=== PATIENT | female | born 1985 | race Caucasian/White ===

== ENCOUNTER 2017-10-27 21:37 | Emergency (ER) ==
[2017-10-27 21:46] VITALS: BP 117/77; TEMP 99.2; BMI 20.2
--- NOTE | 2017-10-27 21:58 | ED.PDOC ---
General ED Provider: Dr. UTE WARE-ER Chief Complaint: Non-specific Complaint Stated Complaint: angela got this cyst on my labia Time Seen by Physician: 21:56 Mode of Arrival: Walk-In Information Source: Patient Exam Limitations: No limitations Nursing and Triage Documentation Reviewed and Agree: Yes Reviewed sepsis parameters & appropriate labs ordered?: Yes System Inflammatory Response Syndrome: Not Applicable Sepsis Protocol: For patient's 13 years and over: Temp is 96.8 and below OR 101 and greater Pulse >90 BPM Resp >20/minute Acutely Altered Mental Status Are patient's symptoms suggestive of a new infection, such as: -Pneumonia -Skin, Soft Tissue -Endocarditis -UTI -Bone, Joint Infection -Implantable Device -Acute Abdominal Infection -Wound Infection -Meningitis -Blood Stream Catheter Infection -Unknown Skin Complaint Exam - Skin/Soft Tissue Complaint/Exam Onset/Duration: 5 days Symptoms Are: Still present Timing: Constant Initial Severity: Mild Current Severity: Mild Location: left labia Character: Reports: Swelling, Raised Aggravating: Reports: None Alleviating: Reports: None Associated Signs and Symptoms: Reports: Tenderness Related History: Reports: Similar episode Related Surgical History: Reports: None Recent Exposure to Others w/Similar Symptoms: Yes Skin Findings: Present: Fluctuant mass Joint Tenderness Present: No Differential Diagnoses: Abscess, Cellulitis Review of Systems - Review Of Systems Constitutional: Reports: No symptoms Eyes: Reports: No symptoms Ears, Nose, Mouth, Throat: Reports: No symptoms Respiratory: Reports: No symptoms Cardiac: Reports: No symptoms GI: Reports: No symptoms : Reports: No symptoms, Pain (noted labial cyst on the left labia) Musculoskeletal: Reports: No symptoms Skin: Reports: No symptoms Neurological: Reports: No symptoms Endocrine: Reports: No symptoms Hematologic/Lymphatic: Reports: No symptoms All Other Systems: Reviewed and Negative Past Medical History - Past Medical History Previously Healthy: Yes Endocrine: Reports: Unknown Cardiovascular: Reports: Unknown Respiratory: Reports: Unknown Hematological: Reports: Unknown Gastrointestinal: Reports: Unknown Genitourinary: Reports: Unknown Neuro/Psych: Reports: Unknown Musculoskeletal: Reports: Unknown Cancer: Reports: Unknown Last Menstrual Period: 2 weeks ago - Surgical History General Surgical History: Reports: Unknown - Family History Family History: Reports: Unknown - Social History Smoking Status: Current every day smoker Hx Substance Use: No Alcohol Screening: None - Immunizations Tetanus Shot up to Date: Yes (2016) Physical Exam - Physical Exam Appearance: Well-appearing, No pain distress, Well-nourished Pain Distress: Mild Eyes: AMANDA, EOMI, Conjunctiva clear ENT: Ears normal, Nose normal, Oropharynx normal Neck: Supple Respiratory: Airway patent, Breath sounds clear, Breath sounds equal, Respirations nonlabored Cardiovascular: RRR, Pulses normal, No rub, No murmur GI/: Soft, Nontender, No masses, Bowel sounds normal, No Organomegaly Musculoskeletal: Normal strength, ROM intact, No edema, No calf tenderness Skin: Warm, Dry, Normal color Neurological: Sensation intact, Motor intact, Reflexes intact, Cranial nerves intact, Alert, Oriented Psychiatric: Affect appropriate, Mood appropriate Critical Care Note - Critical Care Note Total Time (mins): 0 Course - Course Orders, Labs, Meds: Orders Category Date Time Status Doxycycline Hyclate MEDS 10/27/17 21:55 Discontinued 100 mg PO NOW STA Hydrocodone Bit/Acetaminophen [[place] 7.5-325] MEDS 10/27/17 21:56 Discontinued 1 tab PO ONCE STA Medications Discontinued Medications Generic Name Dose Route Start Last Admin Trade Name Freq PRN Reason Stop Dose Admin Acetaminophen/Hydrocodone Bitart 1 tab 10/27/17 21:56 10/27/17 22:03 [place] 7.5-325 PO 10/27/17 21:57 1 tab ONCE STA Administration Doxycycline Hyclate 100 mg 10/27/17 21:55 10/27/17 22:03 Doxycycline Hyclate PO 10/27/17 21:56 100 mg NOW STA Administration Vital Signs: Temp Pulse Resp BP Pulse Ox 10/27/17 21:38 99.2 F 98 H 20 117/77 99 Departure - Departure Time of Disposition: 21:58 Disposition: HOME SELF-CARE Discharge Problem: Labial cyst Instructions: Bartholin Cyst (ED) Condition: Good Pt referred to PMD for follow-up: Yes Additional Instructions: doxycycline 100mg q 12hrs #14--norco 5mg q 4hrs prn #4--sitz baths--f/u with gas generator operator beronica Allergies/Adverse Reactions: Allergies Sulfa (Sulfonamide Antibiotics) Adverse Reaction (Verified 10/27/17 21:43) Anaphylaxis Home Medications: Ambulatory Orders Carbamazepine [Tegretol] 200 mg PO BID 10/27/17 Lamotrigine [Lamictal] 400 mg PO DAILY 10/27/17 Phenytoin Sodium Extended [Dilantin] 0 mg PO BID 10/27/17 Disposition Discussed With: Patient
[2017-10-27] MEDS: NORCO 7.5-325 PO STA (22:03)
[2017-10-27] MEDS: DOXYCYCLINE HYCLATE PO STA (22:03)
== END 2017-10-27 22:14 | disposition home or self-care (01) ==
LOC: ED 21:37
DX: N90.7 Vulvar cyst (principal); F17.210 Nicotine dependence, cigarettes, uncomplicated
CPT/HCPCS: 99282

== ENCOUNTER 2017-12-04 20:49 | Outpatient (CLI) ==
[2017-12-04 12:40] VITALS: BMI 20.5
== END 2017-12-04 20:50 | disposition left against medical advice (07) ==
LOC: AMBL 20:49
PROVIDERS: ATTEND Emergency Medicine
DX: R40.4 Transient alteration of awareness (principal)

== ENCOUNTER 2018-08-01 10:13 | Emergency (ER) ==
[2018-08-01 10:13] VITALS: BMI 20.5
[2018-08-01 10:26] VITALS: BP 116/68; TEMP 97.1
[2018-08-01] MEDS ORDERED: LIDOCAINE HCL 1% SDV SUBCUT STA (10:31)
--- NOTE | 2018-08-01 10:46 | ED.PDOC ---
General ED Provider: Dr. UTE WARE-ER Chief Complaint: Extremity Pain/Injury Stated Complaint: i accidentally cut my leg Time Seen by Physician: 10:20 Mode of Arrival: Wheelchair Information Source: Patient Exam Limitations: No limitations [facility] Nursing and Triage Documentation Reviewed and Agree: Yes Does patient meet sepsis criteria?: No System Inflammatory Response Syndrome: Not Applicable Sepsis Protocol: For patient's 13 years and over: Temp is 96.8 and below OR 101 and greater Pulse >90 BPM Resp >20/minute Acutely Altered Mental Status Are patient's symptoms suggestive of a new infection, such as: -Pneumonia -Skin, Soft Tissue -Endocarditis -UTI -Bone, Joint Infection -Implantable Device -Acute Abdominal Infection -Wound Infection -Meningitis -Blood Stream Catheter Infection -Unknown Skin Complaint Exam - Laceration/Lower Ext. Complaint/Exam Location of Injury: Right, Leg Mechanism of Injury: Laceration Onset/Duration: 30 min Symptoms Are: Still present Initial Severity: Mild Current Severity: Mild Aggravating: Movement Alleviating: Compression Associated Signs and Symptoms: Denies: Fever, Chills, Erythema, Numbness, Tingling Differential Diagnoses: Laceration Review of Systems - Review Of Systems Constitutional: Reports: No symptoms Eyes: Reports: No symptoms Ears, Nose, Mouth, Throat: Reports: No symptoms Respiratory: Reports: No symptoms Cardiac: Reports: No symptoms GI: Reports: No symptoms : Reports: No symptoms Musculoskeletal: Reports: No symptoms Skin: Reports: No symptoms Neurological: Reports: No symptoms Endocrine: Reports: No symptoms Hematologic/Lymphatic: Reports: No symptoms All Other Systems: Reviewed and Negative Past Medical History - Past Medical History Previously Healthy: Yes Endocrine: Reports: Unknown Cardiovascular: Reports: Unknown Respiratory: Reports: Unknown Hematological: Reports: Unknown Gastrointestinal: Reports: Unknown Genitourinary: Reports: Unknown Neuro/Psych: Reports: Unknown Musculoskeletal: Reports: Unknown Cancer: Reports: Unknown Last Menstrual Period: 05/2018 - Surgical History General Surgical History: Reports: Unknown - Family History Family History: Reports: Unknown - Social History Smoking Status: Current every day smoker Hx Substance Use: No Alcohol Screening: None - Immunizations Tetanus Shot up to Date: Yes Physical Exam - Physical Exam Appearance: Well-appearing, No pain distress, Well-nourished Pain Distress: Mild Eyes: AMANDA ENT: Ears normal, Nose normal, Oropharynx normal Neck: Supple Respiratory: Airway patent, Breath sounds clear, Breath sounds equal, Respirations nonlabored Cardiovascular: RRR, Pulses normal, No rub, No murmur GI/: Soft, Nontender, No masses, Bowel sounds normal, No Organomegaly Musculoskeletal: Normal strength, ROM intact, No edema, No calf tenderness Skin: Warm, Dry, Normal color Neurological: Sensation intact, Motor intact, Reflexes intact, Cranial nerves intact, Alert, Oriented Psychiatric: Affect appropriate, Mood appropriate, Anxious Procedures - Laceration/Wound Repair No standard instances Wound Description: Linear Wound Length (cm): 3.5cm right leg Wound Explored: Clean Wound Irrigated: Yes Wound Prep: Hibiclens Anesthesia: Lidocaine Wound Repaired With: Sutures Suture Size and Type: 3.o prolene Number of Sutures: 4 Layer Closure?: No Sterile Dressing Applied?: Yes Splint Applied?: No Sling Applied?: No Critical Care Note - Critical Care Note Total Time (mins): 0 Course - Course Orders, Labs, Meds: Orders Category Date Time Status Lidocaine HCl/Pf [Lidocaine HCl 1% Sdv] MEDS 08/01/18 10:31 Discontinued 5 ml SUBCUT ONCE STA Medications Discontinued Medications Generic Name Dose Route Start Last Admin Trade Name Freq PRN Reason Stop Dose Admin Lidocaine HCl 5 ml 08/01/18 10:31 Lidocaine Hcl 1% Sdv SUBCUT 08/01/18 10:32 ONCE STA Vital Signs: Temp Pulse Resp BP Pulse Ox 08/01/18 10:14 97.1 F L 111 H 24 116/68 93 L Departure - Departure Time of Disposition: 10:46 Disposition: HOME SELF-CARE Discharge Problem: Laceration of leg Qualifiers: Encounter type: initial encounter Laterality: right Qualified Code(s): S81.811A - Laceration without foreign body, right lower leg, initial encounter Instructions: Laceration (ED), Care For Your Stitches (ED) Condition: Good Pt referred to PMD for follow-up: No IPMP verified?: No Additional Instructions: keep clean and dry--sutures out in 7 days---return if aNy signs of infection Allergies/Adverse Reactions: Allergies Sulfa (Sulfonamide Antibiotics) Adverse Reaction (Verified 12/04/17 12:40) Anaphylaxis Home Medications: Ambulatory Orders Carbamazepine [Tegretol] 200 mg PO BID 10/27/17 Lamotrigine [Lamictal] 400 mg PO DAILY 10/27/17 Phenytoin Sodium Extended [Dilantin] 30 mg PO BID 10/27/17 Nitrofurantoin Monohyd/M-Cryst [Macrobid 100 mg Capsule] 100 mg PO BID #20 capsule 12/04/17 Disposition Discussed With: Patient, Family
== END 2018-08-01 10:50 | disposition home or self-care (01) ==
LOC: ED 10:13
DX: S81.811A Laceration without foreign body, right lower leg, initial encounter (principal); F17.210 Nicotine dependence, cigarettes, uncomplicated; W45.8XXA Other foreign body or object entering through skin, initial encounter
CPT/HCPCS: 99283

== ENCOUNTER 2018-10-25 20:20 | Observation (INO) ==
[2018-10-25 20:46] LABS: URINE PREGNANCY TEST NEGATIVE (NEGATIVE)
[2018-10-25] MEDS ORDERED: SODIUM CHLORIDE 1,000 ML IV STA (20:47)
[2018-10-25] MEDS ORDERED: ZOFRAN 4 MG/2 ML IVP STA (20:47)
[2018-10-25] MEDS ORDERED: ROCEPHIN 1 GM in SODIUM CHLORIDE 50 ML IV STA (20:49)
[2018-10-25] MEDS ORDERED: ROCEPHIN ONE (21:01)
[2018-10-25] MEDS ORDERED: MORPHINE 2 MG/ML SYRINGE ONE ×3 (21:02→23:51)
[2018-10-25] MEDS: MORPHINE 2 MG/ML SYRINGE IVP PRN ×3 (21:09→23:59)
--- NOTE | 2018-10-25 21:48 | CT ---
Exam: CT of the abdomen and pelvis without contrast History: Fever and flank pain Technique: [address] of the abdomen and pelvis without intravascular contrast FINDINGS: The lung bases are clear. No significant liver abnormality. The adrenals, pancreas and s pleen are unremarkable. The stomach and hiatus are unremarkable.Prior cholecystectomy. Punctate non obstructing calcifications of the right kidney. There is a left perinephric and periureteral strandi ng without hydronephrosis or hydroureter. The ureter may be slightly prominent compared with contral ateral side. The appendix is normal. Normal caliber bowel loops. Vascular structures appear normal by noncontrast CT. Normal pelvic bowel loops. Normal pelvic genitourinary structures. No pelvic fat inflammation. No acute findings of the skeleton. Impression: 1. Left perinephric and periureteral stranding without hydronephrosis or an hydroureter. No urol ithiasis is seen on the left. Correlate for passed calculus versus urinary tract infection. 2. Nonobstructing calcifications of the right kidney 3. Negative exam otherwise.
--- NOTE | 2018-10-25 23:12 | ED.PDOC ---
General ED Provider: Dr. UTE WARE-ER Chief Complaint: Abdominal Pain Stated Complaint: im hurting Time Seen by Physician: 20:25 Mode of Arrival: Walk-In Information Source: Patient Exam Limitations: No limitations [facility] Nursing and Triage Documentation Reviewed and Agree: Yes Does patient meet sepsis criteria?: No System Inflammatory Response Syndrome: Not Applicable Sepsis Protocol: For patient's 13 years and over: Temp is 96.8 and below OR 101 and greater Pulse >90 BPM Resp >20/minute Acutely Altered Mental Status Are patient's symptoms suggestive of a new infection, such as: -Pneumonia -Skin, Soft Tissue -Endocarditis -UTI -Bone, Joint Infection -Implantable Device -Acute Abdominal Infection -Wound Infection -Meningitis -Blood Stream Catheter Infection -Unknown GI Complaint Exam - Abdominal Pain Complaint/Exam Onset: Gradual Duration: 2 days Symptoms Are: Still present Timing: Constant Initial Severity: Mild Current Severity: Moderate Radiates To: Reports: Flank Character: Reports: Dull, Aching Associated Signs and Symptoms: Reports: Fever, Dysuria, Urinary frequency. Denies: Diaphoresis, Cough, Chest pain, Dizziness, Back pain, Constipation, Blood in stool Differential Diagnoses: UTI Review of Systems - Review Of Systems Constitutional: Reports: Chills, Fever Eyes: Reports: No symptoms Ears, Nose, Mouth, Throat: Reports: No symptoms Respiratory: Reports: No symptoms Cardiac: Reports: No symptoms GI: Reports: Abdominal pain : Reports: No symptoms Musculoskeletal: Reports: Back pain Skin: Reports: No symptoms Neurological: Reports: No symptoms Endocrine: Reports: No symptoms Hematologic/Lymphatic: Reports: No symptoms All Other Systems: Reviewed and Negative Past Medical History - Past Medical History Previously Healthy: Yes Endocrine: Reports: Unknown Cardiovascular: Reports: Unknown Respiratory: Reports: Unknown Hematological: Reports: Unknown Gastrointestinal: Reports: Unknown Genitourinary: Reports: Unknown Neuro/Psych: Reports: Unknown Musculoskeletal: Reports: Unknown Cancer: Reports: Unknown Last Menstrual Period: 3-4 WEEKS AGO - Surgical History General Surgical History: Reports: Unknown - Family History Family History: Reports: Unknown - Social History Smoking Status: Current every day smoker, Heavy tobacco smoker Hx Substance Use: Yes (" NOT LATELY") Alcohol Screening: None - Immunizations Tetanus Shot up to Date: Yes Physical Exam - Physical Exam Appearance: Well-appearing, No pain distress, Well-nourished Eyes: AMANDA, EOMI, Conjunctiva clear ENT: Ears normal, Nose normal, Oropharynx normal Neck: Supple Respiratory: Airway patent, Breath sounds clear, Breath sounds equal, Respirations nonlabored Cardiovascular: RRR GI/: Soft, Nontender, No masses, Bowel sounds normal, No Organomegaly Musculoskeletal: Normal strength, ROM intact, No edema, No calf tenderness Skin: Warm, Dry, Normal color Neurological: Sensation intact, Motor intact, Reflexes intact, Cranial nerves intact, Alert, Oriented Psychiatric: Affect appropriate, Mood appropriate Interpretation - Radiology Interpretation Radiology Interpretation By: Radiologist Radiology Results: Positive Exam Interpreted: CT Scan Physician Notification - Case Discussed Physician Notified: dr roach Time of Notification: 23:16 Critical Care Note - Critical Care Note Total Time (mins): 0 Course - Course Hematology/Chemistry: 10/25/18 21:35 10/25/18 21:35 Orders, Labs, Meds: Lab Review 10/25/18 10/25/18 10/25/18 20:35 20:35 20:35 WBC RBC Hgb Hct MCV MCH MCHC RDW Coeff of Devendra Plt Count Immature Gran % (Auto) Neut % (Auto) Lymph % (Auto) [place] % (Auto) Eos % (Auto) Baso % (Auto) Immature Gran # (Auto) Neut # (Auto) Lymph # (Auto) [place] # (Auto) Eos # (Auto) Baso # (Auto) Sodium Potassium Chloride Carbon Dioxide Anion Gap BUN Creatinine Estimated GFR (MDRD) BUN/Creatinine Ratio Glucose Lactic Acid Calcium Total Bilirubin AST ALT Alkaline Phosphatase Total Protein Albumin Globulin Albumin/Globulin Ratio Amylase Lipase Procalcitonin Urine Color Yellow Urine Clarity Cloudy Urine pH 7.0 Ur Specific [place] 1.015 Urine Protein 2+ Urine Glucose (UA) Negative Urine Ketones Negative Urine Blood 2+ Urine Nitrite Positive Urine Bilirubin Negative Urine Urobilinogen 1.0 Ur Leukocyte Esterase 3+ Urine Microscopic RBC 2-5 Urine Microscopic WBC 20-30 Ur Squamous Epith Cells 0-2 Urine Bacteria 1+ Urine Test Negative Influ A Molecular Assay Negative by naat Influ B Molecular Assay Negative by naat 10/25/18 10/25/18 10/25/18 21:35 21:35 21:35 WBC 15.07 H RBC 4.57 Hgb 13.2 Hct 39.3 MCV 86.0 MCH 28.9 MCHC 33.6 RDW Coeff of Devendra 13.2 Plt Count 232 Immature Gran % (Auto) 0.3 Neut % (Auto) 82.4 Lymph % (Auto) 7.8 L [place] % (Auto) 9.0 Eos % (Auto) 0.1 Baso % (Auto) 0.4 Immature Gran # (Auto) 0.0 Neut # (Auto) 12.4 H Lymph # (Auto) 1.2 [place] # (Auto) 1.4 Eos # (Auto) 0.0 Baso # (Auto) 0.1 Sodium 132.8 L Potassium 4.10 Chloride 101.1 Carbon Dioxide 25.2 Anion Gap 10.60 BUN 10.7 Creatinine 0.66 Estimated GFR (MDRD) 104.00 BUN/Creatinine Ratio 16.21 Glucose 115.8 H Lactic Acid 0.86 Calcium 9.19 Total Bilirubin 0.70 AST 26.6 ALT 38.8 H Alkaline Phosphatase 58.1 Total Protein 7.44 Albumin 4.05 Globulin 3.39 Albumin/Globulin Ratio 1.19 Amylase 44.4 Lipase 22.6 L Procalcitonin Urine Color Urine Clarity Urine pH Ur Specific [place] Urine Protein Urine Glucose (UA) Urine Ketones Urine Blood Urine Nitrite Urine Bilirubin Urine Urobilinogen Ur Leukocyte Esterase Urine Microscopic RBC Urine Microscopic WBC Ur Squamous Epith Cells Urine Bacteria Urine Test Influ A Molecular Assay Influ B Molecular Assay 10/25/18 21:35 WBC RBC Hgb Hct MCV MCH MCHC RDW Coeff of Devendra Plt Count Immature Gran % (Auto) Neut % (Auto) Lymph % (Auto) [place] % (Auto) Eos % (Auto) Baso % (Auto) Immature Gran # (Auto) Neut # (Auto) Lymph # (Auto) [place] # (Auto) Eos # (Auto) Baso # (Auto) Sodium Potassium Chloride Carbon Dioxide Anion Gap BUN Creatinine Estimated GFR (MDRD) BUN/Creatinine Ratio Glucose Lactic Acid Calcium Total Bilirubin AST ALT Alkaline Phosphatase Total Protein Albumin Globulin Albumin/Globulin Ratio Amylase Lipase Procalcitonin < 0.05 Urine Color Urine Clarity Urine pH Ur Specific [place] Urine Protein Urine Glucose (UA) Urine Ketones Urine Blood Urine Nitrite Urine Bilirubin Urine Urobilinogen Ur Leukocyte Esterase Urine Microscopic RBC Urine Microscopic WBC Ur Squamous Epith Cells Urine Bacteria Urine Test Influ A Molecular Assay Influ B Molecular Assay Orders Category Date Time Status ED IV/MEDIPORT/POWERPORT .ONCE EMERGENCY 10/25/18 20:46 Active AMYLASE Stat LAB 10/25/18 21:35 Completed BLOOD CULTURE (ED ONLY) Stat LAB 10/25/18 21:35 Received CBC W/ AUTO DIFF Stat LAB 10/25/18 21:35 Completed COMPREHENSIVE METABOLIC PANEL Stat LAB 10/25/18 21:35 Completed FLU A/B MOLECULAR Stat LAB 10/25/18 20:35 Completed LACTIC ACID Stat LAB 10/25/18 21:35 Completed LIPASE Stat LAB 10/25/18 21:35 Completed MOLECULAR GROUP A STREP Stat LAB 10/25/18 20:35 Completed PROCALCITONIN Stat LAB 10/25/18 21:35 Completed URINALYSIS C & S IF INDICATED Stat LAB 10/25/18 20:35 Completed URINE CULTURE Stat LAB 10/25/18 20:50 Received URINE Stat LAB 10/25/18 20:35 Completed 0.9 % Sodium Chloride [Saline Flush] MEDS 10/25/18 20:46 Ordered 1 syr IVF PRN PRN Ceftriaxone Sodium [Rocephin] MEDS 10/25/18 21:01 Discontinued 1 gm .ROUTE .STK-MED ONE Ceftriaxone Sodium [Rocephin] 1 gm MEDS 10/25/18 20:49 Discontinued 0.9 % Sodium Chloride [Sodium Chloride] 50 ml IV ONCE Morphine Sulfate [Morphine 2 mg/ml Syringe] MEDS 10/25/18 20:46 Ordered 2 mg IVP Q2HR PRN Ondansetron HCl/Pf [Zofran 4 mg/2 ml] MEDS 10/25/18 20:47 Discontinued 4 mg IVP ONCE STA Sodium Chloride 0.9% [Sodium Chloride] 1,000 ml MEDS 10/25/18 20:47 Active IV 100 mls/hr CT ABDOMEN/PELVIS WO CONTRAST Stat RADS 10/25/18 20:48 Completed Medications Generic Name Dose Route Start Last Admin Trade Name Freq PRN Reason Stop Dose Admin Sodium Chloride 1,000 mls @ 100 mls/hr 10/25/18 20:47 10/25/18 21:07 Sodium Chloride IV 10/26/18 06:46 100 mls/hr .Q10H STA Administration Morphine Sulfate 2 mg 10/25/18 20:46 10/25/18 22:53 Morphine 2 Mg/Ml Syringe IVP 2 mg Q2HR PRN Administration Abdominal Pain Sodium Chloride 1 syr 10/25/18 20:46 10/25/18 22:54 Saline Flush IVF 1 syr PRN PRN Administration To flush IV Discontinued Medications Generic Name Dose Route Start Last Admin Trade Name Freq PRN Reason Stop Dose Admin Ceftriaxone Sodium 1 gm/ 50 mls @ 75 mls/hr 10/25/18 20:49 10/25/18 21:46 Sodium Chloride IV 10/25/18 21:28 75 mls/hr ONCE STA Administration Ondansetron HCl 4 mg 10/25/18 20:47 10/25/18 21:10 Zofran 4 Mg/2 Ml IVP 10/25/18 20:48 4 mg ONCE STA Administration Vital Signs: Temp Pulse Resp BP Pulse Ox 10/25/18 20:20 100.9 F H 120 H 24 113/70 99 Departure - Departure Time of Disposition: 23:16 Disposition: ADMITTED INPATIENT Discharge Problem: UTI (urinary tract infection) Qualifiers: Urinary tract infection type: acute pyelonephritis Qualified Code(s): N10 - Acute pyelonephritis Instructions: Urinary Tract Infection in Women (ED) Condition: Good Pt referred to PMD for follow-up: No IPMP verified?: No Allergies/Adverse Reactions: Allergies Sulfa (Sulfonamide Antibiotics) Adverse Reaction (Verified 10/25/18 20:32) Anaphylaxis Home Medications: Ambulatory Orders 1 [No Reported Medications] 10/25/18 Disposition Discussed With: Patient, Family
[2018-10-25] MEDS ORDERED: TYLENOL PO PRN (23:17)
[2018-10-25] MEDS ORDERED: ZOFRAN 4 MG/2 ML IVP PRN (23:20)
[2018-10-25] MEDS ORDERED: LOVENOX SUBCUT SCH (23:30)
[2018-10-26 00:14] VITALS: BMI 24.6
[2018-10-26] MEDS: DILAUDID 1 MG/ML SYRINGE IVP PRN ×4 (02:51→14:18)
[2018-10-26] MEDS ORDERED: AZACTAM 1 GM in SODIUM CHLORIDE 50 ML IV SCH (09:00)
[2018-10-26] MEDS ORDERED: LEVAQUIN 500 MG in PREMIX 100 ML D5W 1 BAG IV SCH (09:00)
[2018-10-26] MEDS: SODIUM CHLORIDE 1,000 ML IV SCH ×2 (09:53→11:26)
[2018-10-26] MEDS ORDERED: INVANZ 1 GM in SODIUM CHLORIDE 50 ML IV STA (11:21)
[2018-10-26 16:01] VITALS: BP 111/72; TEMP 98.6
[2018-10-26] MEDS ORDERED: DILAUDID 1 MG/ML SYRINGE IVP STA (16:12)
[2018-10-26] MEDS ORDERED: LOVENOX SUBCUT SCH (21:00)
[2018-10-27] MEDS ORDERED: INVANZ 1 GM in SODIUM CHLORIDE 50 ML IV SCH (09:00)
--- NOTE | 2018-10-29 09:04 | HP ---
DATE OF SERVICE: 10/25/18 CHIEF COMPLAINT: Pain left posterior back radiating toward the front. SOURCE OF HISTORY: The patient, emergency room triage note and M.D. notes. HISTORY OF PRESENT ILLNESS: The patient claimed to have experienced pain in the left posterior back and radiating toward the anterior abdomen, lower. She claimed that this is similar to when she had a kidney stone. She did experience urinary frequency but no pain on urination. The patient claimed that she also had been vomiting. No diarrhea. She also claimed that she had a temperature of 104 about 4 p.m. She had two 500 mg tablets of Tylenol at about 7:30. The patient presented to the emergency room at 8:20 p.m. Temperature was 100.9, pulse 120, respiratory rate 24, oxygen saturation 99 on room air. Blood pressure of 113/70. Pain on a scale of 1 to 10 rated as 10. The patient weighed 165 lbs in the emergency room. BMI 24.3 but I don't believe the patient is 5'11". CBC showed WBC 15,070, neutrophils 12.4, lymphyocytes slightly low, the rest normal. Platelet count 232 ,000. Chemistry: Slightly lower sodium 132, EGFR 104, BUN 10.7, creatinine 0.66. Lactic acid 0.86, ALT 38.8, AST normal. Lipase and amylase normal. Procalcitonin less than 0.05. Urinalysis 2+ protein, 2+ blood, nitrite positive. Leukocyte esterase 3+, WBC 20 to 30, RBC 2 to 5 squamous epithileal cells 0 to 2, bacteria 1+. test negative urine. Rapid A and B Influenza negative. CT scan of the abdomen without contrast at 3 mm slices, left perinephric and periureteral stranding without hydronephrosis or an hydroureter. No ureterolithiasis is seen on the left. Correlate for passing a calculus vs urinary tract infection, nonobstructing calcification of the right kidney. Negative examination otherwise. Dr. Bobby felt that the patient needed admission so the patient was then admitted. The patient, when I talked with her earlier today pointed out the pain is in the back radiating toward the flank and toward the abdomen, lower. She told me that she just came back to [facility] recently. She lives in [place] and had been diagnosed with SLE and I wanted to pursue what medications she was taking. She told me that one was Methotrexate but could not remember the other medications. I did inform her that I needed to know and I asked her when she did come to town and she told me that she just moved to [facility] recently (is it one month or two months?) and she said about two months. She also told me that she had not taken any of her medication in the last two months. She could not remember the names of her medications that she had been taking and also the name of the vb developer in [place]. PAST PERSONAL HISTORY: The patient claimed to have a kidney stone in the past with similar symptoms. She was seen at this emergency room on 12/04/[address] Bautista and noted to have multiple complaints and had the problems for the last two days. Her male boyfriend convinced her to come to the hospital and she finally relented according to the history. She also mentioned that she just got out of [facility]. She also had a miscarriage six weeks prior to presentation. The patient, during that visit, had a urine drug screen and was positive for amphetamine, methamphetamine, cannabinoids, benzodiazepine. She also was positive for hep C, negative for hepatitis A, B surface, hepatitis C core, HIV1 and 2 and HIV P24 antigen. She was discharged with Macrobid. She claimed to have had SLE and was being followed by a vb developer while in [place]. She did have some medication but had not taken any of those more than two months. She was looking at her phone and told me that she was on Methotrexate and another medication. She also has history of epilepsy but no medications in the last month or two. She had three sections, previous cholecystectomy and labs. She had a cyst on the left fibia seen at the emergency room 10/27/17. During that visit, the patient's medication was listed as Tegretol 200 mg twice a day, Lamictal 400 mg daily, Phenytoin, dose not correct on the entry - it is 0. FAMILY HISTORY: Negative for diabetes, hypertension, malignancy or CVA. SOCIAL HISTORY: The patient is a , claimed to have recently moved back to [place] from [place]. She smokes one pack of cigarettes a day and claims to have used substances before but not lately. She had three previous Cesearean sections. MEDICATIONS: (Prior to admission) The patient claimed that she is not on any medications or has not taken any medication for more than two months. ALLERGIES: SULFA AND PRODUCED ANAPHYLACTIC REACTION. REVIEW OF SYSTEMS: CONSTITUTIONAL: The patient had fever and chills with no significant fatigue. ELECTRO PLATER: Denies any headache or visual disturbances and no syncopal episode or seizure event although this patient had a past history of seizure disorder. VISUAL: Negative. AUDITORY: Unremarkable. RESPIRATORY: Denies any significant cough, shortness of breath or hemoptysis. GASTROINTESTINAL: The patient had been vomiting and did complain of abdominal pain in the left posterior back radiating toward the flank and lower abdomen, left side. No diarrhea. GENITOURINARY: The patient did admit to frequency but no pain on urination. MUSCULOSKELETAL: The patient has pain in the left paralumbar area radiating toward the abdomen anteriorly. The pain was described as similar to the episode when she had a kidney stone. I did inform her that the CT scan of the abdomen does not show any stone in the ureter. It is the tube coming from the kidney down to the bladder. INTEGUMENT: Negative. ENDOCRINE: Negative. No polyuria or polydipsia. HEMATOLOGIC: The patient denies any history of prolonged bleeding. PSYCHIATRIC: Affect appears to be normal. The patient did answer questions that I have asked. PHYSICAL EXAMINATION: GENERAL: We have a 33-year-old female admitted to the hospital because of urinary tract infection and probable pyelonephritis with CT scan of the abdomen and pelvis. Urinalysis was abnormal. The patient received Morphine Sulfate 2 mg intravenously in the ER at 2045 or 8:46 p.m., Ceftriaxone 1 gm intravenously at 8:49 p.m. to 2127. She also received Zofran 4 mg intravenously. Diagnosis for admission was urinary tract infection, acute pyelonephritis. VITAL SIGNS: HEAD: Face symmetrical and equal with no facial weakness. No redness. EYES: Pupils equal/reactive to light. Conjunctivae not pale. Sclerae not icteric. THROAT: No inflammation, tumors or exudate. NECK: No masses. No bruit. CHEST: Symmetrical and equal with good expansion. LUNGS: Breath sounds are heard in both sides. No rales or wheezes. HEART: Audible and regular with good tones. No murmurs. ABDOMEN: Flat,soft with some tenderness on the left side but no muscular guarding. Bowel sounds are active. EXTERNAL GENITALIA: Not examined. RECTAL: Not performed. LOWER EXTREMITIES: Symmetrical and equal with no significant edema. Pedal pulses not examined. UPPER EXTREMITIES: Symmetrical and equal. ASSESSMENT: 1. URINARY TRACT INFECTION/ACUTE PYELONEPHRITIS 2. HISTORY OF SEIZURE DISORDER NOT ON ANY MEDICATION 3. HISTORY OF SLE, NOT ON MEDICATION 4. CHRONIC TOBACCO USE, PERSISTENT 5. HISTORY OF LEFT LABIAL CYST 6. HISTORY OF HEPATITIS C 7. HISTORY OF ADMITTED DRUG USE BUT CLAIMED NOT USING LATELY DISCUSSION: The diagnosis was explained to the patient that she does have abnormal urine and the CT scan did show some stranding around the left kidney and left ureter indicating some infection around the kidney. It appears to be compatible with her symptoms. Was given the antibiotics and the antibiotics will be changed if and when the bacteria is not sensitive to the antibiotic that she is prescribed. I did inform her that the problem could be serious and that sometimes the bacteria will get into the blood which then escalates the problem above just a urinary tract infection. I did inform her that it could be serious and I had a patient that has similar symptoms and did indeed have a bacteria in the blood. She told me that she had been to her house and identified the patient. I told her that I don't name names of people but I do use the same clinical setting to elicit the importance and also the seriousness. She told me that this patient was the one that encouraged her to come to the emergency room. TIME SPENT: GREATER THAN 65 MINUTES MTDMily
--- NOTE | 2018-10-29 09:27 | AMA ---
DATE OF SERVICE: 10/26/18 REVIEW NOTES ON THE LABS AND THE PATIENT'S URINE CULTURE: Preliminary did show gram negative rods, colony count greater than 100,000. The patient was placed on Aztreonam and Levofloxacin. I did change the Aztreonam to Ertapenem which is probably a better medication for E. coli if it is ESBL positive. I left the Levofloxacin. This patient was given Hydromorphone 1 mg intravenously q.3hr p.r.n. She also was given Lovenox 40 mg subcutaneously daily. The patient did not appear in any acute distress. The patient, about the middle of the afternoon or later was going to sign out of the hospital. She is complaining of not getting the pain medication. The patient had been given Hydromorphone less than two hours ago but I did advise the nurse, Edwige Valenzuela to give her one dose of the Dilaudid. I also told . Edwige Valenzuela, R.N., that if she signs out, I would like to talk to her before she does that. She certainly would need medication and would be advised to go to another facility if that would be her choice. The next call that I got when I arrived home was from the nurse that the patient has left the hospital without them knowing it. She just had been given the medication and she appeared to be quite happy according to Ms. Valenzuela's description. No one noted when she left and she was discovered when the nurse made rounds. The police were notified. The patient never did come back to the hospital nor to the emergency room. Part of the Hep Lock is still with the patient. I asked the nurse when I came back to the hospital whether the police had found her and there was no word about it. I had ordered drug screen from the blood if possible or if the urine is still available. The patient did receive the Ertapenem at 3:12 p.m. 10/26/18. MTDD
== END 2018-10-26 17:15 | disposition left against medical advice (07) ==
LOC: ED 20:20 → INTOOBSV 23:23 → MEDSURG A 23:23
PROVIDERS: ADMIT General Practice; ATTEND General Practice
DX: N39.0 Urinary tract infection, site not specified (principal); R50.9 Fever, unspecified; N10 Acute pyelonephritis; N12 Tubulo-interstitial nephritis, not specified as acute or chronic; R30.0 Dysuria; R35.0 Frequency of micturition; Z72.0 Tobacco use
CPT/HCPCS: 36415; 80053; 81001; 81025; 82150; 83605; 83690; 84145; 84703; 85025; 87040; 87086; 87186; 87502; 87651; 96361; 96365; 96367; 96372; 96375; 96376; 99217; 99220; 99283; 99284

== ENCOUNTER 2018-10-26 20:52 | Emergency (ER) ==
[2018-10-26 20:59] VITALS: BP 122/74; TEMP 99.5; BMI 23.0
--- NOTE | 2018-10-26 22:45 | CT ---
EXAM: CT of the abdomen and pelvis without contrast. HISTORY: Flank pain. PROCEDURE: Contiguous axial CT images of the abdomen and pelvis without contrast with coronal and sa gittal reformats. FINDINGS: Comparison made with CT of 10/25/2018. There is a 4 mm nodule the right lung/lower lobe. T he liver is normal in appearance. The gallbladder is surgically absent. The pancreas, spleen and ad renal glands are normal in appearance. There is an 1 mm nonobstructive calcification in the right ki dney. There is left perinephric and periureteral inflammatory stranding. No hydronephrosis. The left ureter is incompletely visualized. The bladder is adequately filled and normal in appearance. The a bdominal aorta is normal in appearance. The appendix is normal in appearance. There is fecal stasis in the colon. No free fluid or free air in the abdomen or pelvis. The uterus is unremarkable. There a re degenerative changes in the spine. There is minimal subcutaneous air in the right anterior abdomin al wall consistent with an injection site. Impression: Left perinephric and periureteral inflammatory stranding without hydronephrosis, suspici ous for infection. Recommend correlation with urinary analysis. The left ureter is incompletely visua lized and a nonobstructive ureterolith cannot be excluded. Nonobstructive right nephrolithiasis as described. Fecal stasis in the colon. Cholecystectomy. 4 mm nodule the right lung/lower lobe. Recommend follow-up CT in 6 months to confirm stability.
[2018-10-26] MEDS ORDERED: LIDOCAINE HCL 1% SDV IM STA (23:27)
[2018-10-26] MEDS ORDERED: ROCEPHIN IM STA (23:27)
[2018-10-26] MEDS ORDERED: PHENERGAN 25 MG/ML VIAL IM STA (23:28)
[2018-10-26] MEDS ORDERED: MORPHINE 2 MG/ML SYRINGE IM STA ×2 (23:28→23:32)
--- NOTE | 2018-10-26 23:31 | ED.PDOC ---
General ED Provider: Dr. UTE WARE-ER Chief Complaint: Back Pain Stated Complaint: was admitted to the hospital for pyelo and signed out ama--- back now---she says she cannot stay in the hospital "angela got too much going on" but "i need medication" Time Seen by Physician: 20:55 Mode of Arrival: Wheelchair Information Source: Patient Exam Limitations: No limitations [facility] and Triage Documentation Reviewed and Agree: Yes Does patient meet sepsis criteria?: No System Inflammatory Response Syndrome: Not Applicable Sepsis Protocol: For patient's 13 years and over: Temp is 96.8 and below OR 101 and greater Pulse >90 BPM Resp >20/minute Acutely Altered Mental Status Are patient's symptoms suggestive of a new infection, such as: -Pneumonia -Skin, Soft Tissue -Endocarditis -UTI -Bone, Joint Infection -Implantable Device -Acute Abdominal Infection -Wound Infection -Meningitis -Blood Stream Catheter Infection -Unknown Complaint Exam - UTI Female Complaint/Exam Patient Complains of: Reports: Painful urination Onset/Duration: several days Symptoms Are: Still present Initial Severity: Mild Current Severity: Moderate Location of Pain: Reports: Left, Flank Associated Signs and Symptoms: Reports: Flank pain. Denies: Fever, Chills Patient Rh Status: Unknown CVA Tenderness: Yes Suprapubic Tenderness: No Differential Diagnoses: Pyelonephritis Review of Systems - Review Of Systems Constitutional: Reports: Fever Eyes: Reports: No symptoms Ears, Nose, Mouth, Throat: Reports: No symptoms Respiratory: Reports: No symptoms Cardiac: Reports: No symptoms GI: Reports: Abdominal pain, Nausea : Reports: Burning, Dysuria, Flank pain Musculoskeletal: Reports: No symptoms Skin: Reports: No symptoms Neurological: Reports: No symptoms Endocrine: Reports: No symptoms Hematologic/Lymphatic: Reports: No symptoms All Other Systems: Reviewed and Negative Past Medical History - Past Medical History Previously Healthy: Yes Endocrine: Reports: Unknown Cardiovascular: Reports: Unknown Respiratory: Reports: Unknown Hematological: Reports: Unknown Gastrointestinal: Reports: Unknown Genitourinary: Reports: Unknown Neuro/Psych: Reports: Unknown Musculoskeletal: Reports: Unknown Cancer: Reports: Unknown Last Menstrual Period: 3 weeks ago - Surgical History General Surgical History: Reports: Unknown - Family History Family History: Reports: Unknown - Social History Smoking Status: Current every day smoker, Heavy tobacco smoker Hx Substance Use: Yes (marijuana) Alcohol Screening: None - Immunizations Tetanus Shot up to Date: Yes Physical Exam - Physical Exam Appearance: Well-appearing Pain Distress: Moderate Eyes: AMANDA, EOMI, Conjunctiva clear ENT: Ears normal Neck: Supple Respiratory: Airway patent, Breath sounds clear, Breath sounds equal, Respirations nonlabored Cardiovascular: RRR, Pulses normal, No rub, No murmur GI/: Soft, Nontender, No masses, Bowel sounds normal, No Organomegaly Musculoskeletal: Normal strength Skin: Warm, Dry, Normal color Neurological: Sensation intact, Motor intact, Reflexes intact, Cranial nerves intact, Alert, Oriented Psychiatric: Affect appropriate, Mood appropriate Critical Care Note - Critical Care Note Total Time (mins): 0 Course - Course Hematology/Chemistry: 10/26/18 22:20 10/26/18 22:20 Orders, Labs, Meds: Lab Review 10/26/18 10/26/18 10/26/18 22:20 22:20 22:20 WBC 12.87 H RBC 4.45 Hgb 12.9 Hct 38.5 MCV 86.5 MCH 29.0 MCHC 33.5 RDW Coeff of Devendra 13.2 Plt Count 200 Immature Gran % (Auto) 0.4 Neut % (Auto) 76.9 Lymph % (Auto) 11.3 [place] % (Auto) 10.6 H Eos % (Auto) 0.3 Baso % (Auto) 0.5 Immature Gran # (Auto) 0.1 Neut # (Auto) 9.9 H Lymph # (Auto) 1.5 [place] # (Auto) 1.4 Eos # (Auto) 0.0 Baso # (Auto) 0.1 Sodium 133.4 L Potassium 3.62 Chloride 99.6 Carbon Dioxide 26.9 Anion Gap 10.52 BUN 10.0 Creatinine 0.73 Estimated GFR (MDRD) 92.00 BUN/Creatinine Ratio 13.69 Glucose 86.8 Calcium 8.89 Total Bilirubin 0.74 AST 26.4 ALT 32.6 Alkaline Phosphatase 64.3 Total Protein 7.12 Albumin 3.85 Globulin 3.27 Albumin/Globulin Ratio 1.17 Serum , Qual Negative Urine Color Urine Clarity Urine pH Ur Specific Dillon Urine Protein Urine Glucose (UA) Urine Ketones Urine Blood Urine Nitrite Urine Bilirubin Urine Urobilinogen Ur Leukocyte Esterase Urine Microscopic RBC Urine Microscopic WBC Ur Squamous Epith Cells Urine Bacteria 10/26/18 23:10 WBC RBC Hgb Hct MCV MCH MCHC RDW Coeff of Devendra Plt Count Immature Gran % (Auto) Neut % (Auto) Lymph % (Auto) [place] % (Auto) Eos % (Auto) Baso % (Auto) Immature Gran # (Auto) Neut # (Auto) Lymph # (Auto) [place] # (Auto) Eos # (Auto) Baso # (Auto) Sodium Potassium Chloride Carbon Dioxide Anion Gap BUN Creatinine Estimated GFR (MDRD) BUN/Creatinine Ratio Glucose Calcium Total Bilirubin AST ALT Alkaline Phosphatase Total Protein Albumin Globulin Albumin/Globulin Ratio Serum , Qual Urine Color Yellow Urine Clarity Clear Urine pH 6.0 Ur Specific Dillon <=1.005 Urine Protein Negative Urine Glucose (UA) Negative Urine Ketones Trace Urine Blood 2+ Urine Nitrite Negative Urine Bilirubin Negative Urine Urobilinogen 0.2 Ur Leukocyte Esterase Trace Urine Microscopic RBC 2-5 Urine Microscopic WBC 5-10 Ur Squamous Epith Cells 0-2 Urine Bacteria Trace Orders Category Date Time Status CBC W/ AUTO DIFF Stat LAB 10/26/18 22:20 Completed COMPREHENSIVE METABOLIC PANEL Stat LAB 10/26/18 22:20 Completed SERUM Stat LAB 10/26/18 22:20 Completed URINALYSIS C & S IF INDICATED Stat LAB 10/26/18 23:10 Completed URINE CULTURE Stat LAB 10/26/18 23:22 Received Ceftriaxone Sodium [Rocephin] MEDS 10/26/18 23:27 Discontinued 1 gm IM ONCE STA Lidocaine HCl/Pf [Lidocaine HCl 1% Sdv] MEDS 10/26/18 23:27 Discontinued 2.1 ml IM ONCE STA Morphine Sulfate [Morphine 2 mg/ml Syringe] MEDS 10/26/18 23:32 Stat 2 mg IM ONCE STA Promethazine HCl [Phenergan 25 mg/ml Vial] MEDS 10/26/18 23:28 Discontinued 25 mg IM ONCE STA CT ABDOMEN/PELVIS WO CONTRAST Stat RADS 10/26/18 22:08 Completed Medications Discontinued Medications Generic Name Dose Route Start Last Admin Trade Name Freq PRN Reason Stop Dose Admin Ceftriaxone Sodium 1 gm 10/26/18 23:27 Rocephin IM 10/26/18 23:28 ONCE STA Lidocaine HCl 2.1 ml 10/26/18 23:27 Lidocaine Hcl 1% Sdv IM 10/26/18 23:28 ONCE STA Morphine Sulfate 2 mg 10/26/18 23:32 Morphine 2 Mg/Ml Syringe IM 10/26/18 23:33 ONCE STA Promethazine HCl 25 mg 10/26/18 23:28 Phenergan 25 Mg/Ml Vial IM 10/26/18 23:29 ONCE STA i told ms reynoso it was best for her to be hospitalized but she says there is no way she can stay---i made her aware of risk of sepsis and even but she declines to stay in the hospital "thats why i left before" Vital Signs: Temp Pulse Resp BP Pulse Ox 10/26/18 20:53 99.5 F 104 H 24 122/74 98 Departure - Departure Time of Disposition: 23:35 Disposition: HOME SELF-CARE Discharge Problem: Pyelonephritis Instructions: Urinary Tract Infection in Women (ED) Condition: Good Pt referred to PMD for follow-up: Yes IPMP verified?: No Additional Instructions: cipro 500mg bid x 7 days--norco 5mg q 4hrs prn pain #6---fluids---return if temp over 102 or vomiting.... Allergies/Adverse Reactions: Allergies Sulfa (Sulfonamide Antibiotics) Adverse Reaction (Verified 10/26/18 20:59) Anaphylaxis Home Medications: Ambulatory Orders 1 [No Reported Medications] 10/25/18 Disposition Discussed With: Patient
== END 2018-10-26 23:59 | disposition home or self-care (01) ==
LOC: ED 20:52
DX: N12 Tubulo-interstitial nephritis, not specified as acute or chronic (principal); F17.210 Nicotine dependence, cigarettes, uncomplicated
CPT/HCPCS: 36415; 80053; 81001; 84703; 85025; 87086; 96372; 99283

== ENCOUNTER 2019-06-21 08:35 | Emergency (ER) ==
[2019-06-21 08:35] VITALS: BMI 24.6
[2019-06-21 08:39] VITALS: BP 125/76; TEMP 98.9
--- NOTE | 2019-06-21 10:40 | US ---
Exam: Transvaginal ultrasonographic evaluation of the pelvis. OB ultrasound. Limited evaluation. with abdominal pain and bleeding. Transvaginal probe was utilized for better anatomic visualization Comparison: CT abdomen pelvis performed 10/26/2018. FINDINGS: There is a single, live intrauterine gestation with an estimated gestational age of 9 week s and 6 days. Yolk sac and crown-rump length are seen. [place]-rump length measures 3.01 cm. 9 weeks 6 days. heart rate measures 166 beats per minute The ovaries were not evaluated on this exam. Impression: Single, live intrauterine gestation with an estimated gestational age of 9 weeks and 6 days and a fet al heart rate of 167 beats per minute.
--- NOTE | 2019-06-21 11:08 | ED.PDOC ---
General ED Provider: Dr. RAGHU SHAY Chief Complaint: Stated Complaint: possible Time Seen by Physician: 08:40 (andrez present at all times ) Mode of Arrival: Walk-In Information Source: Patient Exam Limitations: No limitations Nursing and Triage Documentation Reviewed and Agree: Yes Does patient meet sepsis criteria?: No System Inflammatory Response Syndrome: Not Applicable Sepsis Protocol: For patient's 13 years and over: Temp is 96.8 and below OR 101 and greater Pulse >90 BPM Resp >20/minute Acutely Altered Mental Status Are patient's symptoms suggestive of a new infection, such as: -Pneumonia -Skin, Soft Tissue -Endocarditis -UTI -Bone, Joint Infection -Implantable Device -Acute Abdominal Infection -Wound Infection -Meningitis -Blood Stream Catheter Infection -Unknown Complaint Exam - Complaint/Exam Patient Complains of: Denies: Vaginal discharge (vaginal spotting no pain feels bloated thinks she may be ) Onset/Duration: 2 days . bleeding has been described as spotting and pain less Timing: Intermittent Initial Severity: Mild Current Severity: None Location of Pain: Reports: None Aggravating: Reports: None Alleviating: Reports: None Associated Signs and Symptoms: Reports: Vaginal bleeding (see above). Denies: Diaphoresis, Back pain, Fever, Hematuria, Dysuria, Constipation, Blood in stool , Rectal pain, Appetite change, Nausea, Vomiting, Decreased urine output, Increased urine frequency, Increased thirst, Decreased activity, Lethargy, Abdominal Pain, Bubble bath use, Vaginal discharge, Genital swelling, Genital blisters, Retained foreign body : 5 Para: 3 Hx Total # of Abortions (Spontaneous & Elective): 2 Last Voided: this am Ectopic Risk Factors: Reports: Maternal age >30 Ovarian Torsion Risk Factors: Reports: Reproductive age Surgical Obstruction Risk Factors: Reports: None RH Status: Unknown Related Surgical History: Reports: None Abdominal Findings: Present: None Differential Diagnoses: Review of Systems - Review Of Systems Constitutional: Reports: No symptoms Eyes: Reports: No symptoms Ears, Nose, Mouth, Throat: Reports: No symptoms Respiratory: Reports: No symptoms Cardiac: Reports: No symptoms GI: Reports: No symptoms : Reports: Other (vaginal spotting) Musculoskeletal: Reports: No symptoms Skin: Reports: No symptoms Neurological: Reports: No symptoms Endocrine: Reports: No symptoms Hematologic/Lymphatic: Reports: No symptoms All Other Systems: Reviewed and Negative Past Medical History - Past Medical History Previously Healthy: Yes Endocrine: Reports: Unknown Cardiovascular: Reports: Unknown Respiratory: Reports: Unknown Hematological: Reports: Unknown Gastrointestinal: Reports: Unknown Genitourinary: Reports: Unknown Neuro/Psych: Reports: Unknown Musculoskeletal: Reports: Unknown Cancer: Reports: Unknown Last Menstrual Period: unknown - Surgical History General Surgical History: Reports: Unknown - Family History Family History: Reports: Unknown - Social History Smoking Status: Current every day smoker, Heavy tobacco smoker Hx Substance Use: Yes Alcohol Screening: None Physical Exam - Physical Exam Appearance: Well-appearing, No pain distress, Well-nourished Eyes: AMANDA, EOMI, Conjunctiva clear ENT: Ears normal, Nose normal, Oropharynx normal Respiratory: Airway patent, Breath sounds clear, Breath sounds equal, Respirations nonlabored Cardiovascular: RRR, Pulses normal, No rub, No murmur GI/: Soft, Nontender, No masses, Bowel sounds normal, No Organomegaly Musculoskeletal: Normal strength, ROM intact, No edema, No calf tenderness Skin: Warm, Dry, Normal color Neurological: Sensation intact, Motor intact, Reflexes intact, Cranial nerves intact, Alert, Oriented Psychiatric: Affect appropriate, Mood appropriate Interpretation - Radiology Interpretation Radiology Interpretation By: Radiologist Radiology Results: Positive (9 weeks 6 days ) Re-Evaluation - Re-Evaluation Time of Re-Evaluation: 10:00 Status: Improved Vital Signs Stable: Yes Pain Level: no bleeding Appearance: NAD Lungs: Clear Skin: Warm and Dry Neuro: Alert and Oriented X3 CV: RRR Critical Care Note - Critical Care Note Total Time (mins): 0 Course - Course Hematology/Chemistry: 06/21/19 08:53 06/21/19 08:53 Orders, Labs, Meds: Lab Review 06/21/19 06/21/19 06/21/19 08:53 08:53 08:53 WBC 6.56 RBC 4.36 Hgb 12.8 Hct 38.4 MCV 88.1 MCH 29.4 MCHC 33.3 RDW Coeff of Devendra 12.8 Plt Count 187 Immature Gran % (Auto) 0.3 Neut % (Auto) 59.9 Lymph % (Auto) 28.7 [place] % (Auto) 8.5 Eos % (Auto) 1.5 Baso % (Auto) 1.1 Immature Gran # (Auto) 0.0 Neut # (Auto) 3.9 Lymph # (Auto) 1.9 [place] # (Auto) 0.6 Eos # (Auto) 0.1 Baso # (Auto) 0.1 Sodium 135.0 Potassium 3.78 Chloride 105.5 Carbon Dioxide 22.8 Anion Gap 10.48 BUN 8.5 Creatinine 0.49 L Estimated GFR (MDRD) 145.00 BUN/Creatinine Ratio 17.34 Glucose 89.6 Calcium 9.06 Total Bilirubin 0.48 AST 37.5 H ALT 61.8 H Alkaline Phosphatase 64.7 Total Protein 7.38 Albumin 4.08 Globulin 3.30 Albumin/Globulin Ratio 1.23 HCG, Quant Serum , Qual Positive 06/21/19 08:53 WBC RBC Hgb Hct MCV MCH MCHC RDW Coeff of Devendra Plt Count Immature Gran % (Auto) Neut % (Auto) Lymph % (Auto) [place] % (Auto) Eos % (Auto) Baso % (Auto) Immature Gran # (Auto) Neut # (Auto) Lymph # (Auto) [place] # (Auto) Eos # (Auto) Baso # (Auto) Sodium Potassium Chloride Carbon Dioxide Anion Gap BUN Creatinine Estimated GFR (MDRD) BUN/Creatinine Ratio Glucose Calcium Total Bilirubin AST ALT Alkaline Phosphatase Total Protein Albumin Globulin Albumin/Globulin Ratio HCG, Quant 51737.000 Serum , Qual Orders Category Date Time Status CBC W/ AUTO DIFF Stat LAB 06/21/19 08:53 Completed COMPREHENSIVE METABOLIC PANEL Stat LAB 06/21/19 08:53 Completed HCG,QUANTITATIVE Stat LAB 06/21/19 08:53 Completed SERUM Stat LAB 06/21/19 08:53 Completed ULTRASOUND OB/TV [U/S OB/TV] Stat RADS 06/21/19 09:41 Completed Vital Signs: Temp Pulse Resp BP Pulse Ox 06/21/19 08:36 98.9 F 115 H 20 125/76 98 Departure - Departure Time of Disposition: 11:10 (left ama w/o informing MD OR HER NURSE ) Disposition: AMA Discharge Problem: Vaginal spotting Qualifiers: Weeks of gestation: 9 weeks Qualified Code(s): Z3A.09 - 9 weeks gestation of Condition: Good Pt referred to PMD for follow-up: Yes IPMP verified?: No Allergies/Adverse Reactions: Allergies Sulfa (Sulfonamide Antibiotics) Adverse Reaction (Verified 06/21/19 08:39) Anaphylaxis Home Medications: Ambulatory Orders 1 [No Reported Medications] 10/25/18 Disposition Discussed With: Patient
== END 2019-06-21 11:27 | disposition left against medical advice (07) ==
LOC: ED 08:35
DX: Z32.01 Encounter for pregnancy test, result positive (principal); O26.851 Spotting complicating pregnancy, first trimester; Z3A.09 9 weeks gestation of pregnancy; F17.210 Nicotine dependence, cigarettes, uncomplicated
CPT/HCPCS: 36415; 80053; 84702; 84703; 85025; 99284